=== PATIENT | female | born 1985 ===

== ENCOUNTER 2017-09-05 14:24 | Emergency (ER) | payer OTHER, SELFPAY ==
[2017-09-05] MEDS ORDERED: Sodium Chloride 0.9% 1,000 ML IV STA (15:15)
[2017-09-05] MEDS ORDERED: Albuterol-Ipratrop 3 mg / 0.5 (3 ml) UD INH STA (15:15)
[2017-09-05] MEDS ORDERED: Albuterol-Ipratrop 3 mg / 0.5 (3 ml) UD ONE (15:21)
--- NOTE | 2017-09-05 15:22 | ED PDOC ---
HPI: CCC, URI, Sore Throat Time Seen by Provider: 09/05/17 15:15 Chief Complaint (Nursing): Flu-like Symptoms Chief Complaint (Provider): Cough, Congestion, Body Aches History Per: Patient History/Exam Limitations: no limitations Onset/Duration Of Symptoms: Days (x 6) Current Symptoms Are (Timing): Still Present Additional Complaint(s): Stacey is a 31 y/o female who presents to the ED complaining of cough, congestion, and body aches since Thursday. Patient has been taking Tylenol and Motrin but her symptoms continue to worsen. PMD: None Provided Past Medical History Reviewed: Historical Data, Nursing Documentation, Vital Signs Vital Signs: Last Vital Signs Temp 99.5 F 09/05/17 14:52 Pulse 84 09/05/17 14:52 Resp 18 09/05/17 14:52 BP 108/67 09/05/17 14:52 Pulse Ox 99 09/05/17 15:24 - Family History Family History: States: Unknown Family Hx - Home Medications Home Medications: Ambulatory Orders Medication Instructions Recorded Acetaminophen [Acetaminophen Extra 2 tab PO Q6 PRN #24 tablet 09/05/17 Strength] Albuterol HFA [Ventolin HFA 90 2 puff IH [id number] PRN #1 inhaler 09/05/17 mcg/actuation (8 g)] Ibuprofen [Motrin Tab] 800 mg PO Q8 PRN #21 tab 09/05/17 Promethazine/Codeine 5 ml PO Q12 PRN #100 ml 09/05/17 [Codeine/Promethazine 10 MG/5 Ml-6.25 MG/5 Ml] Pseudoephedrine [Sudafed Tab] 60 mg PO Q6 PRN #24 tab 09/05/17 - Allergies Allergies/Adverse Reactions: Allergies Allergy/AdvReac Type Severity Reaction Status Date / Time No Known Allergies Allergy Verified 09/05/17 14:52 Review of Systems ROS Statement: Except As Marked, All Systems Reviewed And Found Negative Constitutional: Positive for: Other (body aches) ENT: Positive for: Nose Congestion Respiratory: Positive for: Cough Physical Exam - Reviewed Nursing Documentation Reviewed: Yes Vital Signs Reviewed: Yes - Physical Exam ENT: Positive for: Nasal Congestion Respiratory: Positive for: Other (bronchospastic cough noted on inspiratory effort) Extremity: Positive for: Normal ROM Neurologic/Psych: Positive for: Alert, Oriented - ECG O2 Sat by Pulse Oximetry: 99 (RA) Pulse Ox Interpretation: Normal Medical Decision Making Medical Decision Making: Time: 15:15 Initial Impression: Cough, Congestion, Body Aches Initial Plan: --Duoneb --Sudafed --Toradol Scribe Attestation: Documented by Sathish Islas, acting as a scribe for Fabby Stafford PA-C Provider Scribe Attestation: All medical record entries made by the Scribe were at my direction and personally dictated by me. I have reviewed the chart and agree that the record accurately reflects my personal performance of the history, physical exam, medical decision making, and the department course for this patient. I have also personally directed, reviewed, and agree with the discharge instructions and disposition. Disposition - Clinical Impression Clinical Impression: Influenza - Patient ED Disposition Is Patient to be Admitted: No - Disposition Referrals: FAMILY PROVIDER,HARVEY [Primary Care Provider] - [facility] [Outside] Disposition: Routine/Home Disposition Time: 16:36 Condition: FAIR Prescriptions: Albuterol HFA [Ventolin HFA 90 mcg/actuation (8 g)] 2 puff IH [id number] PRN #1 inhaler PRN Reason: Cough Acetaminophen [Acetaminophen Extra Strength] 2 tab PO Q6 PRN #24 tablet PRN Reason: Fever >100.4 F Ibuprofen [Motrin Tab] 800 mg PO Q8 PRN #21 tab PRN Reason: Pain, Moderate (4-7) Promethazine/Codeine [Codeine/Promethazine 10 MG/5 Ml-6.25 MG/5 Ml] 5 ml PO Q12 PRN #100 ml PRN Reason: Nasal Congestion Pseudoephedrine [Sudafed Tab] 60 mg PO Q6 PRN #24 tab PRN Reason: Nasal Congestion Instructions: Influenza (ED) Forms: [employer] (Uzbek), [facility] ED School/Work Excuse Print Language: TAMAZIGHT
[2017-09-05 16:41] VITALS: BP 114/64; PULSE 77; RESP 21; TEMP 98.8
[2017-09-05 16:42] VITALS: O2SAT 99
== END 2017-09-05 16:51 | disposition home or self-care (01) ==
LOC: H.ER 14:24
DX: J11.1 Influenza due to unidentified influenza virus with other respiratory manifestations (principal)
CPT/HCPCS: 81025; 94150; 94640; 96361; 96374; 99284; J1885; J7040